=== PATIENT | female | born 1995 | race Caucasian/White ===

== ENCOUNTER 2018-11-27 06:28 | Emergency (ER) | payer OTHER, BC ==
[2018-11-27] MEDS ORDERED: NS 1,000 ML IV ONE ×2 (06:36)
[2018-11-27] MEDS ORDERED: ONDANSETRON 4 MG/2 ML VIAL IVP ONE (07:15)
[2018-11-27] MEDS ORDERED: MECLIZINE HCL 25 MG TAB PO ONE (07:16)
--- NOTE | 2018-11-27 07:22 | EDPHY ---
H & P Time Seen by Provider: 11/27/18 06:55 HPI/ROS: HPI Vertigo. 23-year-old female by private vehicle with her roommate. This patient reports that 2 days ago she started having symptoms of intermittent vertigo with associated lightheadedness. She reports that she has had this in the past and seen a physician for this complaint. She reports that she was told by this physician to eat on a more regular basis and keep well hydrated. When she does this usually has resolution of the symptoms. She reports that since this morning she has had intense vertigo described classically as everything spinning around her. She has had a difficult time walking because of this. She has had associated nausea with multiple episodes of nonbilious, nonbloody vomiting. She denies any neck pain. She denies headache. She has not had a fever but she states that she had chills while she was vomiting. She denies any loss of sensation or weakness in her extremities. She states that her symptoms are constant but somewhat better when she is laying still. She denies increase in symptoms with movement of her head. ROS: Constitutional: No fever, as above. Eyes: No discharge. No changes in vision. ENT: No sore throat. No nasal congestion or rhinorrhea. Respiratory: No cough. No shortness of breath. Cardiac: No chest pain, no palpitations. Gastrointestinal: No abdominal pain, no vomiting, no diarrhea. Genitourinary: No hematuria. No dysuria or increased frequency with urination. Musculoskeletal: No back pain. No neck pain. No myalgias or arthralgias. Skin: No rashes. Neurological: No headache. No focal weakness or altered sensation. As above. Past medical history: As above. No prescription medications. Social history: Nonsmoker. No alcohol. Here by herself but she came with her roommate. 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 Physical Exam: General Appearance: Alert, she appears mildly uncomfortable but not in distress. This patient is responding to questions appropriately and in full sentences. This patient appears well-hydrated and well-nourished. Eyes: Pupils equal and round and reactive to light at 3-2 mm bilaterally, no pallor or injection. No lid edema, erythema or injection. She has mild horizontal Uni directional nystagmus. She has a negative head impulse test. No photophobia. ENT, Mouth: Mucous membranes are moist. The pharyngeal tissues are unremarkable. No edema or swelling. No asymmetry suggestive of abscess. No erythema or exudates. No tongue lacerations or abrasions. Respiratory: There are no retractions, lungs are clear to auscultation with good air movement bilaterally. Cardiovascular: Regular rate and rhythm. Bradycardia. No murmur. Gastrointestinal: Abdomen is soft and nontender, no masses, bowel sounds normal. No focal tenderness at McBurney's point. No Burden sign. Neurological: Motor sensory function is grossly intact. Cranial nerves are normal. Cerebellar function is intact. Vertiginous symptoms are not induced with rapid head movements. Skin: Warm and dry, no rashes. Musculoskeletal: Neck is supple and nontender. No pain on flexion of her neck Extremities are symmetrical. All joints range without pain or impingement. Psychiatric: No agitation. No depression. Database: EKG: EKG time is 7:52 a.m.; EKG shows a narrow complex normal sinus bradycardia with sinus arrhythmia with a ventricular rate of 54. The IA, QRS, QT intervals are within normal limits. There are no ST-T wave changes indicative of ischemic or injury pattern. No evidence of right heart strain. No evidence of WPW, Brugada syndrome, hypertrophic cardiomyopathy. Interpreted by me. Imaging: MRI without contrast of brain: Normal study. Results were discussed with staff radiologist Dr. Cecilio Kyle. Procedures: Emergency department course: Her vital signs were reviewed and are normal. IV was placed. She was placed on a monitor. She will be started on IV normal saline and given 1-2 L over the next 1-2 hours for dehydration. EKG obtained and reviewed by myself. Her presentation is consistent with a likely peripheral cause of vertigo. More likely labyrinthitis, vestibular neuritis. Benign positional vertigo less likely. She does consent to MRI to evaluate for possible but unlikely central etiology. 8:20 a.m., the patient has had approximately 1 L of IV normal saline as well as medications as noted above. She is feeling better at this time but still feels symptomatic when she sits up in bed. She denies symptoms moving her head back and forth. Repeat neurologic exam is nonfocal. She will be going to MRI shortly. 12:15 p.m., the patient was re-evaluated, repeat neurologic Assessment is nonfocal. She is eating at this time. She has been drinking fluids without issue. She has been up and ambulatory to the bathroom with a normal gait. She is feeling better. Results of her full diagnostic workup discussed with her in detail. She feels comfortable going home at this time. I will prescribe her meclizine. At this time I will not put her on steroids. I will have her follow up with Neurology, Dr. Clark Venegas or 1 of his partners in the next few days for re-evaluation and further management. Return to emergency department precautions were reviewed with her. All of her questions were answered. She was discharged from the emergency department in good condition. Differential Diagnosis: The differential diagnosis on this patient includes but is not limited to labyrinthitis, vestibular neuritis. Benign positional vertigo, CVA unlikely. This represents a partial list of diagnoses considered. These considerations are based on history, physical exam, past history, reassessment and diagnostic testing. Smoking Status: Never smoked Constitutional: Initial Vital Signs Temperature (C) 36.6 C 11/27/18 06:29 Heart Rate 62 11/27/18 06:29 Respiratory Rate 17 11/27/18 06:29 Blood Pressure 102/69 11/27/18 06:29 O2 Sat (%) 100 11/27/18 06:29 O2 Delivery Mode Room Air Allergies/Adverse Reactions: latex Allergy (Verified 11/27/18 06:33) Home Medications: Medication Instructions Recorded Meclizine HCl [ANTIVERT] 25 mg PO Q6 PRN #10 tab 11/27/18 Medical Decision Making - Diagnostics Imaging Results: Imaging Impressions Brain MRI 11/27/18 07:15 Impression: Normal MRI of the brain without contrast. Results called to Dr. Meza at 9:50 AM. - Data Points Laboratory Results: Laboratory Results 11/27/18 11:15 11/27/18 08:35 11/27/18 11/27/18 11/27/18 11:22 11:15 10:50 WBC 11.78 10^3/uL H 10^3/uL (3.80-9.50) RBC 4.26 10^6/uL 10^6/uL (4.18-5.33) Hgb 12.5 g/dL L g/dL (12.6-16.3) POC Hgb 12.9 gm/dL gm/dL (12.6-16.3) Hct 37.4 % L % (38.0-47.0) POC Hct 38 % % (38-47) MCV 87.8 fL fL (81.5-99.8) MCH 29.3 pg pg (27.9-34.1) MCHC 33.4 g/dL g/dL (32.4-36.7) RDW 12.5 % % (11.5-15.2) Plt Count Cancelled MPV 9.9 fL fL (8.7-11.7) Neut % (Auto) 86.0 % H % (39.3-74.2) Lymph % (Auto) 9.5 % L % (15.0-45.0) [place] % (Auto) 4.0 % L % (4.5-13.0) Eos % (Auto) 0.0 % L % (0.6-7.6) Baso % (Auto) 0.2 % L % (0.3-1.7) Nucleat RBC Rel Count 0.0 % % (0.0-0.2) Absolute Neuts (auto) 10.14 10^3/uL H 10^3/uL (1.70-6.50) Absolute Lymphs (auto) 1.12 10^3/uL 10^3/uL (1.00-3.00) Absolute Monos (auto) 0.47 10^3/uL 10^3/uL (0.30-0.80) Absolute Eos (auto) 0.00 10^3/uL L 10^3/uL (0.03-0.40) Absolute Basos (auto) 0.02 10^3/uL 10^3/uL (0.02-0.10) Absolute Nucleated RBC 0.00 10^3/uL 10^3/uL (0-0.01) Immature Gran % 0.3 % % (0.0-1.1) Immature Gran # 0.03 10^3/uL 10^3/uL (0.00-0.10) POC Sodium 145 mEq/L mEq/L (135-145) Sodium POC Potassium 4.0 mEq/L mEq/L (3.3-5.0) Potassium POC Chloride 110 mEq/L mEq/L (97-110) Chloride Carbon Dioxide Anion Gap POC BUN 14 mg/dL mg/dL (7-23) BUN Creatinine POC Creatinine 0.6 mg/dL mg/dL (0.6-1.0) Estimated GFR Glucose POC Glucose 81 mg/dL mg/dL (70-100) Calcium Beta HCG, Qual Specimen Hemolysis Urine Color COLORLESS Urine Appearance CLEAR Urine pH 7.0 (5.0-7.5) Ur Specific [place] 1.005 (1.002-1.030) Urine Protein NEGATIVE (NEGATIVE) Urine Ketones TRACE H (NEGATIVE) Urine Blood NEGATIVE (NEGATIVE) Urine Nitrate NEGATIVE (NEGATIVE) Urine Bilirubin NEGATIVE (NEGATIVE) Urine Urobilinogen NEGATIVE EU EU (0.2-1.0) Ur Leukocyte Esterase NEGATIVE (NEGATIVE) Urine Glucose NEGATIVE (NEGATIVE) 11/27/18 11/27/18 11/27/18 10:10 08:35 08:35 WBC REJ RBC REJ Hgb REJ POC Hgb Hct REJ POC Hct MCV REJ MCH REJ MCHC REJ RDW REJ Plt Count REJ MPV REJ Neut % (Auto) REJ Lymph % (Auto) REJ [place] % (Auto) REJ Eos % (Auto) REJ Baso % (Auto) REJ Nucleat RBC Rel Count REJ Absolute Neuts (auto) REJ Absolute Lymphs (auto) REJ Absolute Monos (auto) REJ Absolute Eos (auto) REJ Absolute Basos (auto) REJ Absolute Nucleated RBC REJ Immature Gran % REJ Immature Gran # REJ POC Sodium Sodium 139 mEq/L mEq/L (135-145) POC Potassium Potassium 5.3 mEq/L H mEq/L (3.5-5.2) POC Chloride Chloride 110 mEq/L mEq/L (97-110) Carbon Dioxide 21 mEq/l L mEq/l (22-31) Anion Gap 8 mEq/L mEq/L (6-14) POC BUN BUN 17 mg/dL mg/dL (7-23) Creatinine 0.7 mg/dL mg/dL (0.6-1.0) POC Creatinine Estimated GFR > 60 Glucose 74 mg/dL mg/dL (70-100) POC Glucose Calcium 8.7 mg/dL mg/dL (8.5-10.4) Beta HCG, Qual NEGATIVE Specimen Hemolysis 252 Urine Color Urine Appearance Urine pH Ur Specific [place] Urine Protein Urine Ketones Urine Blood Urine Nitrate Urine Bilirubin Urine Urobilinogen Ur Leukocyte Esterase Urine Glucose 11/27/18 08:35 WBC REJ RBC REJ Hgb REJ POC Hgb Hct REJ POC Hct MCV REJ MCH REJ MCHC REJ RDW REJ Plt Count REJ MPV REJ Neut % (Auto) REJ Lymph % (Auto) REJ [place] % (Auto) REJ Eos % (Auto) REJ Baso % (Auto) REJ Nucleat RBC Rel Count REJ Absolute Neuts (auto) REJ Absolute Lymphs (auto) REJ Absolute Monos (auto) REJ Absolute Eos (auto) REJ Absolute Basos (auto) REJ Absolute Nucleated RBC REJ Immature Gran % REJ Immature Gran # REJ POC Sodium Sodium POC Potassium Potassium POC Chloride Chloride Carbon Dioxide Anion Gap POC BUN BUN Creatinine POC Creatinine Estimated GFR Glucose POC Glucose Calcium Beta HCG, Qual Specimen Hemolysis Urine Color Urine Appearance Urine pH Ur Specific [place] Urine Protein Urine Ketones Urine Blood Urine Nitrate Urine Bilirubin Urine Urobilinogen Ur Leukocyte Esterase Urine Glucose Medications Given: Discontinued Medications Sodium Chloride (Ns) 1,000 mls @ 0 mls/hr IV EDNOW ONE; Wide Open PRN Reason: Protocol Stop: 11/27/18 06:37 Last Admin: 11/27/18 07:27 Dose: 1,000 mls Sodium Chloride (Ns) 1,000 mls @ 0 mls/hr IV EDNOW ONE; Wide Open PRN Reason: Protocol Stop: 11/27/18 06:37 Last Admin: 11/27/18 07:27 Dose: 1,000 mls Meclizine HCl (Meclizine Hcl) 25 mg PO EDNOW ONE Stop: 11/27/18 07:17 Last Admin: 11/27/18 07:30 Dose: 25 mg Ondansetron HCl (Zofran) 4 mg IVP EDNOW ONE Stop: 11/27/18 07:16 Last Admin: 11/27/18 07:30 Dose: 4 mg Point of Care Test Results: Chemistry 11/27/18 11:22 POC Sodium 145 mEq/L mEq/L (135-145) POC Potassium 4.0 mEq/L mEq/L (3.3-5.0) POC Chloride 110 mEq/L mEq/L (97-110) POC BUN 14 mg/dL mg/dL (7-23) POC Creatinine 0.6 mg/dL mg/dL (0.6-1.0) POC Glucose 81 mg/dL mg/dL (70-100) ISTAT H&H 11/27/18 11:22 POC Hgb 12.9 gm/dL gm/dL (12.6-16.3) POC Hct 38 % % (38-47) Departure - Departure Disposition: Home, Routine, Self-Care Clinical Impression: Vertigo Condition: Good Instructions: Vertigo (ED) Additional Instructions: Read and follow provided instructions. Follow-up with Neurology, Dr. Clark Venegas or 1 of his partners in 1-2 days for re-evaluation. Call their office today for appointment time. Explained this is for a emergency department follow-up for your vertigo. Take medication as prescribed for vertigo. Return to the emergency department for worsening symptoms or other serious concerns. Referrals: Clark Venegas DO [Medical Doctor] - As per Instructions Prescriptions: Meclizine HCl [ANTIVERT] 25 mg PO Q6 PRN #10 tab PRN Reason: Dizziness
[2018-11-27 11:26] LABS: PLATELET COUNT 214 10^3/uL (150-400)
[2018-11-27 12:26] VITALS: BP 122/81
--- NOTE | 2018-11-27 15:21 | CPEKG ---
Test Reason : OPEN Blood Pressure : / mmHG Vent. Rate : 054 BPM Atrial Rate : 052 BPM P-R Int : 135 ms QRS Dur : 096 ms QT Int : 486 ms P-R-T Axes : 059 073 031 degrees QTc Int : 461 ms Sinus arrhythmia Confirmed by Naveen Harper ([id number]) on 11/27/2018 3:20:41 PM Referred By: Confirmed By:Naveen Harper
== END 2018-11-27 12:25 | disposition home or self-care (01) ==
DX: R42 Dizziness and giddiness (principal); E86.9 Volume depletion, unspecified
CPT/HCPCS: 82435-PO; 82565-PO; 82947-PO; 84132-PO; 84295-PO; 84520-PO; 85014-ER; 96374; J2405